=== PATIENT | female | born 1955 | race Caucasian/White ===

== ENCOUNTER 2020-12-23 10:29 | Emergency (ER) | payer MEDICARE, OTHER ==
[2020-12-23] MEDS ORDERED: Sodium Chloride 0.9% 10 ML Syringe FLUSH PRN (11:10)
[2020-12-23] MEDS ORDERED: Sodium Chloride 0.9% 1,000 ML IV ONE (11:14)
[2020-12-23] MEDS ORDERED: Metoclopramide 10 MG/2 ML SDV IVPUSH ONE (11:14)
[2020-12-23] MEDS ORDERED: HYDROmorphone 0.5 MG/0.5 ML Syringe IVPUSH ONE (11:14)
--- NOTE | 2020-12-23 11:33 | EDM.PDOC ---
ED HPI GENERAL MEDICAL PROBLEM - General Chief Complaint: General Stated Complaint: [place] [facility] Time Seen by Provider: 12/23/20 10:56 Source of Information: Reports: Patient, Family History Limitations: Reports: No Limitations, Other (ED vital signs reveal a temp of 97, pulse of 51, respiratory rate of 12, blood pressure 145/67, pulse ox 98% on room air) - History of Present Illness INITIAL COMMENTS - FREE TEXT/NARRATIVE: 65-year-old female presents to the emergency department via [facility] with a syncopal episode that occurred this morning. Per the patient and her , she states she has had slight dull frontal headache for about a week. Over the course of the past 2 days the headache has become more severe, she has developed nausea, no vomiting, sore throat, shortness of breath, nonproductive cough, and extreme fatigue. She denies any vomiting, diarrhea, or abdominal pain associated with this. She states she does have a history of migraine headaches in the past however has not had one for about 20 years. She denies any history of smoking, she is not on any hormone replacement therapy, and she drinks about 2 glasses of wine per week. Per her 2 days ago they were working in the garden for most of the day and when they came in late that afternoon extreme fatigue hit her., She has no significant past medical history and normally she is able to tolerate this. She was seen at the walk-in clinic yesterday and tested for Covid. They state that this was negative and then she was sent home. Per her , this morning when he got home she was still in bed. He heard her wake up and she walked out the kitchen and is going to make a cup of coffee. At that time she stated she felt dizzy, so he was going to help her to a chair. She stated that then she felt the need to go to the bathroom and as he was walking her there he felt she was going to pass out so he sat her down at the kitchen table. He states that she then passed out and was unresponsive for what he thought was about 2 minutes. She eventually did come around but would not open her eyes and was disoriented. He then called the ambulance and they arrived and brought her to the hospital for transport. She states that about a year ago she did have a Holter monitor placed due to palpitations however the results were unremarkable. She has not had Covid this year and she states she did have her Covid vaccine. - Related Data Allergies Allergy/AdvReac Type Severity Reaction Status Date / Time codeine Allergy Nausea Verified 12/23/20 10:37 Home Meds: Home Meds . [No Known Home Meds] 12/23/20 [History] Past Medical History Musculoskeletal History: Reports: Osteoarthritis Psychiatric History: Reports: Anxiety, Depression - Infectious Disease History Infectious Disease History: Reports: Chicken Pox - Past Surgical History GI Surgical History: Reports: Colonoscopy Musculoskeletal Surgical History: Reports: Carpal Tunnel, Hip Replacement Social & Family History - Tobacco Use Tobacco Use Status *Q: Never Tobacco User Second Hand Smoke Exposure: No - Caffeine Use Caffeine Use: Reports: Coffee - Recreational Drug Use Recreational Drug Use: No ED ROS GENERAL - Review of Systems Review Of Systems: See Below ED EXAM, GENERAL - Physical Exam Exam: See Below Exam Limited By: No Limitations General Appearance: Alert, WD/WN, No Apparent Distress Eye Exam: Bilateral Eye: EOMI, PERRL Ears: Normal External Exam, Hearing Grossly Normal Nose: Normal Inspection Throat/Mouth: Normal Inspection, Normal Lips, Normal Oropharynx, Normal Voice, No Airway Compromise Head: Atraumatic Neck: Normal Inspection, Supple, Full Range of Motion, Lymphadenopathy (L), Lymphadenopathy (R) Respiratory/Chest: No Respiratory Distress, Lungs Clear, Normal Breath Sounds, No Accessory Muscle Use, Chest Non-Tender Cardiovascular: Normal Peripheral Pulses, Regular Rate, Rhythm, No Edema, No Murmur Peripheral Pulses: 2+: Radial (L), Radial (R) GI/Abdominal: Normal Bowel Sounds, Soft, Non-Tender, No Distention (Female) Exam: Deferred Rectal (Female) Exam: Deferred Back Exam: Normal Inspection Extremities: Normal Inspection, Normal Range of Motion Neurological: Alert, Oriented, CN II-XII Intact, Normal Cognition, No Motor/Sensory Deficits Psychiatric: Normal Affect, Normal Mood Skin Exam: Warm, Dry, Intact, Normal Color, No Rash Lymphatic: No Adenopathy #1 Interpretation EKG Date: 12/23/20 Time: 11:52 Rhythm: NSR Rate (Beats/Min): 67 [place]: Normal P-Wave: Present QRS: Normal ST-T: Normal QT: Normal Comparison: NA - No Prior EKG EKG Interpretation Comments: Per Dr. Meek interpretation: Sinus at 67; normal axis and intervals; nonspecific ST depression V3 through V5 Course - Vital Signs Text/Narrative:: Patient presents with a 5-day history of what started as a slight dull frontal headache. Over the past 2 days symptoms have progressed into sore throat, extreme fatigue, severe headache, shortness of breath with a dry nonproductive cough, and nausea without vomiting. She states she has felt like she has had an upper respiratory infection over the past several days. She states she does have a sore throat. She denies abdominal pain, diarrhea, or constipation. Patient patient's witnessed a syncopal episode this morning which lasted about 2 minutes and then once the syncope resolved, she would not open her eyes and seemed like she was disoriented. Patient's feels as though she does have some left facial droop however I did a full neuro assessment on the patient and I did not note this. She is sensitive to light, but pupils are reactive. Neuro assessment was essentially unremarkable. She does have a significant amount of fatigue and generalized weakness. Patient also notes increased nausea while I was performing the neuro exam. I have ordered CT of the head, EKG, portable view of the chest, Covid swab as the patient could have had a false negative. She states she also had a swab for strep throat at the clinic yesterday and this was negative. Upon assessment, there were no tonsils appreciated. There is no exudate noted. And there is no erythema noted. I have also ordered labs to include a troponin, magnesium, CBC, CMP, C-reactive protein, lactic acid, ferritin, LDH, TSH. Last Recorded V/S: Last Vital Signs Temp 97 F 12/23/20 10:34 Pulse 51 L 12/23/20 10:34 Resp 12 12/23/20 10:34 BP 145/67 H 12/23/20 10:34 Pulse Ox 98 12/23/20 10:34 - Orders/Labs/Meds Orders: Active Orders 24 hr Category Date Time Status EKG Documentation Completion [RC] STAT Care 12/23/20 11:11 Active Holter Monitor 48 Hours [RC] .PRN Care 12/23/20 13:08 Active Chest 1V Frontal [CR] Stat Exams 12/23/20 11:10 Taken Head wo Cont [CT] Stat Exams 12/23/20 11:14 Taken C-REACTIVE PROTEIN [CHEM] Stat Lab 12/23/20 11:22 Results COMPREHENSIVE METABOLIC PN,CMP [CHEM] Stat Lab 12/23/20 11:22 Results LACTATE DEHYDROGENASE,LDH [CHEM] Stat Lab 12/23/20 11:22 Results MAGNESIUM [CHEM] Stat Lab 12/23/20 11:22 Results TROPONIN I [CHEM] Stat Lab 12/23/20 11:22 Results TSH [CHEM] Stat Lab 12/23/20 11:22 Results Sodium Chloride 0.9% [Saline Flush] Med 12/23/20 11:10 Active 10 ml FLUSH ASDIRECTED PRN Isolation [COMM] Stat Oth 12/23/20 11:11 Ordered Saline Lock Insert [OM.PC] Stat Ot 12/23/20 11:10 Ordered Medication Orders Sodium Chloride (Sodium Chloride 0.9% 10 Ml Syringe) 10 ml FLUSH ASDIRECTED PRN PRN Reason: Keep Vein Open Last Admin: 12/23/20 11:37 Dose: 10 ml Documented by: FRANKLIN Labs: Laboratory Tests 12/23/20 12/23/20 12/23/20 Range/Units 11:22 11:22 11:22 WBC 6.07 (3.98-10.04) K/mm3 RBC 3.93 L (3.98-5.22) M/mm3 Hgb 12.3 (11.2-15.7) gm/dl Hct 37.9 (34.1-44.9) % MCV 96.4 H (79.4-94.8) fl MCH 31.3 (25.6-32.2) pg MCHC 32.5 (32.2-35.5) g/dl RDW Std Deviation 45.1 (36.4-46.3) fL Plt Count 211 (182-369) K/mm3 MPV 9.7 (9.4-12.3) fl Neut % (Auto) 72.4 H (34.0-71.1) % Lymph % (Auto) 18.5 L (19.3-51.7) % Placer % (Auto) 8.4 (4.7-12.5) % Eos % (Auto) 0.2 L (0.7-5.8) Baso % (Auto) 0.3 (0.1-1.2) % Neut # (Auto) 4.40 (1.56-6.13) K/mm3 Lymph # (Auto) 1.12 L (1.18-3.74) K/mm3 Placer # (Auto) 0.51 H (0.24-0.36) K/mm3 Eos # (Auto) 0.01 L (0.04-0.36) K/mm3 Baso # (Auto) 0.02 (0.01-0.08) K/mm3 PT (9.7-12.0) SECONDS INR APTT 24.3 (21.7-31.4) SECONDS D-Dimer, Quantitative (0.19-0.50) mg/L Sodium (136-145) mEq/L Potassium (3.5-5.1) mEq/L Chloride (98-107) mEq/L Carbon Dioxide (21-32) mEq/L Anion Gap (5-15) BUN (7-18) mg/dL Creatinine (0.55-1.02) mg/dL Est Cr Clr Drug Dosing mL/min Estimated GFR (MDRD) (>60) mL/min BUN/Creatinine Ratio (14-18) Glucose (70-99) mg/dL Lactic Acid (0.4-2.0) mmol/L Calcium (8.5-10.1) mg/dL Magnesium (1.8-2.4) mg/dL Ferritin 127 (8-252) ng/ml Total Bilirubin (0.2-1.0) mg/dL AST (15-37) U/L ALT (14-59) U/L Alkaline Phosphatase (46-116) U/L Troponin I (0.00-0.056) ng/mL C-Reactive Protein (<1.0) mg/dL Total Protein (6.4-8.2) g/dl Albumin (3.4-5.0) g/dl Globulin gm/dL Albumin/Globulin Ratio (1-2) TSH 3rd Generation (0.358-3.74) uIU/mL Urine Color (Yellow) Urine Appearance (Clear) Urine pH (5.0-8.0) Ur Specific [place] (1.005-1.030) Urine Protein (Negative) Urine Glucose (UA) (Negative) Urine Ketones (Negative) Urine Occult Blood (Negative) Urine Nitrite (Negative) Urine Bilirubin (Negative) Urine Urobilinogen (0.2-1.0) Ur Leukocyte Esterase (Negative) U Hyaline Cast (Auto) (0-5) /lpf Urine RBC (0-5) /hpf Urine WBC (0-5) /hpf Ur Epithelial Cells (0-5) /hpf Urine Bacteria (FEW) /hpf Urine Mucus (FEW) /hpf SARS-CoV-2 RNA (ADAL) (NEGATIVE) 12/23/20 12/23/20 12/23/20 Range/Units 11:22 11:22 11:22 WBC (3.98-10.04) K/mm3 RBC (3.98-5.22) M/mm3 Hgb (11.2-15.7) gm/dl Hct (34.1-44.9) % MCV (79.4-94.8) fl MCH (25.6-32.2) pg MCHC (32.2-35.5) g/dl RDW Std Deviation (36.4-46.3) fL Plt Count (182-369) K/mm3 MPV (9.4-12.3) fl Neut % (Auto) (34.0-71.1) % Lymph % (Auto) (19.3-51.7) % Placer % (Auto) (4.7-12.5) % Eos % (Auto) (0.7-5.8) Baso % (Auto) (0.1-1.2) % Neut # (Auto) (1.56-6.13) K/mm3 Lymph # (Auto) (1.18-3.74) K/mm3 Placer # (Auto) (0.24-0.36) K/mm3 Eos # (Auto) (0.04-0.36) K/mm3 Baso # (Auto) (0.01-0.08) K/mm3 PT (9.7-12.0) SECONDS INR APTT (21.7-31.4) SECONDS D-Dimer, Quantitative < 0.19 L (0.19-0.50) mg/L Sodium 135 L (136-145) mEq/L Potassium 3.7 (3.5-5.1) mEq/L Chloride 99 (98-107) mEq/L Carbon Dioxide 24 (21-32) mEq/L Anion Gap 15.7 H (5-15) BUN 19 H (7-18) mg/dL Creatinine 0.8 (0.55-1.02) mg/dL Est Cr Clr Drug Dosing 53.97 mL/min Estimated GFR (MDRD) > 60 (>60) mL/min BUN/Creatinine Ratio 23.8 H (14-18) Glucose 127 H (70-99) mg/dL Lactic Acid 1.9 (0.4-2.0) mmol/L Calcium 8.4 L (8.5-10.1) mg/dL Magnesium 1.8 (1.8-2.4) mg/dL Ferritin (8-252) ng/ml Total Bilirubin 0.6 (0.2-1.0) mg/dL AST 37 (15-37) U/L ALT 76 H (14-59) U/L Alkaline Phosphatase 92 (46-116) U/L Troponin I < 0.017 (0.00-0.056) ng/mL C-Reactive Protein 2.0 H* (<1.0) mg/dL Total Protein 6.6 (6.4-8.2) g/dl Albumin 3.3 L (3.4-5.0) g/dl Globulin 3.3 gm/dL Albumin/Globulin Ratio 1.0 (1-2) TSH 3rd Generation 1.345 (0.358-3.74) uIU/mL Urine Color (Yellow) Urine Appearance (Clear) Urine pH (5.0-8.0) Ur Specific [place] (1.005-1.030) Urine Protein (Negative) Urine Glucose (UA) (Negative) Urine Ketones (Negative) Urine Occult Blood (Negative) Urine Nitrite (Negative) Urine Bilirubin (Negative) Urine Urobilinogen (0.2-1.0) Ur Leukocyte Esterase (Negative) U Hyaline Cast (Auto) (0-5) /lpf Urine RBC (0-5) /hpf Urine WBC (0-5) /hpf Ur Epithelial Cells (0-5) /hpf Urine Bacteria (FEW) /hpf Urine Mucus (FEW) /hpf SARS-CoV-2 RNA (ADAL) (NEGATIVE) 12/23/20 12/23/20 12/23/20 Range/Units 11:22 11:24 12:25 WBC (3.98-10.04) K/mm3 RBC (3.98-5.22) M/mm3 Hgb (11.2-15.7) gm/dl Hct (34.1-44.9) % MCV (79.4-94.8) fl MCH (25.6-32.2) pg MCHC (32.2-35.5) g/dl RDW Std Deviation (36.4-46.3) fL Plt Count (182-369) K/mm3 MPV (9.4-12.3) fl Neut % (Auto) (34.0-71.1) % Lymph % (Auto) (19.3-51.7) % [place] % (Auto) (4.7-12.5) % Eos % (Auto) (0.7-5.8) Baso % (Auto) (0.1-1.2) % Neut # (Auto) (1.56-6.13) K/mm3 Lymph # (Auto) (1.18-3.74) K/mm3 [place] # (Auto) (0.24-0.36) K/mm3 Eos # (Auto) (0.04-0.36) K/mm3 Baso # (Auto) (0.01-0.08) K/mm3 PT 10.8 (9.7-12.0) SECONDS INR 1.01 APTT (21.7-31.4) SECONDS D-Dimer, Quantitative (0.19-0.50) mg/L Sodium (136-145) mEq/L Potassium (3.5-5.1) mEq/L Chloride (98-107) mEq/L Carbon Dioxide (21-32) mEq/L Anion Gap (5-15) BUN (7-18) mg/dL Creatinine (0.55-1.02) mg/dL Est Cr Clr Drug Dosing mL/min Estimated GFR (MDRD) (>60) mL/min BUN/Creatinine Ratio (14-18) Glucose (70-99) mg/dL Lactic Acid (0.4-2.0) mmol/L Calcium (8.5-10.1) mg/dL Magnesium (1.8-2.4) mg/dL Ferritin (8-252) ng/ml Total Bilirubin (0.2-1.0) mg/dL AST (15-37) U/L ALT (14-59) U/L Alkaline Phosphatase (46-116) U/L Troponin I (0.00-0.056) ng/mL C-Reactive Protein (<1.0) mg/dL Total Protein (6.4-8.2) g/dl Albumin (3.4-5.0) g/dl Globulin gm/dL Albumin/Globulin Ratio (1-2) TSH 3rd Generation (0.358-3.74) uIU/mL Urine Color Yellow (Yellow) Urine Appearance Clear (Clear) Urine pH 6.5 (5.0-8.0) Ur Specific [place] 1.025 (1.005-1.030) Urine Protein 2+ H (Negative) Urine Glucose (UA) Negative (Negative) Urine Ketones 4+ H (Negative) Urine Occult Blood Trace-intact H (Negative) Urine Nitrite Negative (Negative) Urine Bilirubin Negative (Negative) Urine Urobilinogen 0.2 (0.2-1.0) Ur Leukocyte Esterase Negative (Negative) U Hyaline Cast (Auto) 0-5 (0-5) /lpf Urine RBC 0-5 (0-5) /hpf Urine WBC 0-5 (0-5) /hpf Ur Epithelial Cells 0-5 (0-5) /hpf Urine Bacteria Few (FEW) /hpf Urine Mucus Moderate H (FEW) /hpf SARS-CoV-2 RNA (ADAL) Negative (NEGATIVE) Meds: Medications Generic Name Dose Route Start Last Admin Trade Name Woody PRN Reason Stop Dose Admin Sodium Chloride 10 ml 12/23/20 11:10 12/23/20 11:37 Sodium Chloride 0.9% 10 Ml Syringe FLUSH 10 ml ASDIRECTED PRN Administration Keep Vein Open Discontinued Medications Generic Name Dose Route Start Last Admin Trade Name Woody PRN Reason Stop Dose Admin Hydromorphone HCl 0.5 mg 12/23/20 11:14 12/23/20 11:36 Hydromorphone 0.5 Mg/0.5 Ml Syringe IVPUSH 12/23/20 11:15 Not Given ONETIME ONE Sodium Chloride 1,000 mls @ 999 mls/hr 12/23/20 11:14 12/23/20 11:31 Normal Saline IV 12/23/20 12:14 999 mls/hr ONETIME ONE Administration Metoclopramide HCl 5 mg 12/23/20 11:14 12/23/20 11:31 Metoclopramide 10 Mg/2 Ml Sdv IVPUSH 12/23/20 11:15 5 mg ONETIME ONE Administration - Radiology Interpretation Free Text/Narrative:: Nothing acute is appreciated on portable view of the chest. - Re-Assessments/Exams Free Text/Narrative Re-Assessment/Exam: 12/23/20 12:47 Hematology reveals a WBC of 6.07, hemoglobin 12.3, hematocrit 37.9, platelet count 211, coagulation is unremarkable, D-dimer less than 0.19, chemistry reveals a sodium of 135, potassium 3.7, chloride 99, carbon dioxide 24, anion gap 15.7, BUN 19, creatinine 0.8, glucose 127, lactic acid 1.9, calcium 8.4, magnesium 1.8, AST 37, ALT 76, troponin less than 0.017, C-reactive protein 2.0, TSH 1.345, Urinalysis shows a 2+ protein, 4+ ketones, trace of occult blood, nitrate negative, leukocyte Estrace negative Covid swab is negative. 12/23/20 13:11 LDH is 173. [facility] radiologist impression: No evidence of acute intracranial abnormality. No acute hemorrhage. No evidence of acute infarct or mass. Patient states that she is feeling much better after IV fluids, Reglan and Dilaudid. She states her headache is gone. She says her nausea is gone. She is no longer sensitive to light. I discussed the lab findings with the patient and her and they are agreeable to go home. I am going however order a Holter monitor on her. She will need to follow-up with her primary care provider, , in the clinic the middle of next week. I will have our kitchen steward/stewardess schedule this appointment as the patient did try to get in to see him yesterday and they said he was booked out until January. Nursing staff is going to ambulate the patient before going home Departure - Departure Time of Disposition: 13:18 Disposition: Home, Self-Care 01 Condition: Fair Clinical Impression: Headache Qualifiers: Headache type: unspecified Headache chronicity pattern: acute headache Intractability: intractable Qualified Code(s): R51.9 - Headache, unspecified Fatigue Qualifiers: Fatigue type: unspecified Qualified Code(s): R53.83 - Other fatigue Episode of syncope Qualifiers: Syncope type: unspecified Qualified Code(s): R55 - Syncope and collapse - Discharge Information Instructions: Syncope, [id number] Referrals: Farhan Laura MD [Ordering Only Provider] - Forms: ED Department Discharge Additional Instructions: You were seen in the emergency department today after having a syncopal episode at home this morning. He also stated you have had a headache for about a week, increased fatigue, cough, shortness of breath, sinus congestion, and a sore throat. CT scan of the head was completed and this was unremarkable. Labs were completed which included markers for any cardiac issues, as well as inflammatory markers. Your lab work was all essentially unremarkable. EKG was unremarkable as well as chest x-ray. This could very likely all be due to viral illness. You state you felt better after receiving 2 L of IV fluid and pain and nausea medication. Recommend that you go home and rest and drink plenty of fluids. A Holter monitor was placed to monitor your heart for the next 48 hours. This information will be sent to Dr. Laura. You have a follow-up appointment scheduled for December 30 at 1:15 in the afternoon with him. He should have the results of your Holter monitor at that time as well. Should your condition worsen or change, do not hesitate returning to the emergency department. Sepsis Event Note (ED) - Evaluation Sepsis Screening Result: No Definite Risk - Focused Exam Vital Signs: Vital Signs Temp Pulse Resp BP Pulse Ox 12/23/20 10:34 97 F 51 L 12 145/67 H 98 - My Orders Last 24 Hours: My Active Orders 12/23/20 11:10 Chest 1V Frontal [CR] Stat Sodium Chloride 0.9% [Saline Flush] 10 ml FLUSH ASDIRECTED PRN Saline Lock Insert [OM.PC] Stat 12/23/20 11:11 EKG Documentation Completion [RC] STAT Isolation [COMM] Stat 12/23/20 11:14 Head wo Cont [CT] Stat 12/23/20 11:22 C-REACTIVE PROTEIN [CHEM] Stat COMPREHENSIVE METABOLIC PN,CMP [CHEM] Stat LACTATE DEHYDROGENASE,LDH [CHEM] Stat MAGNESIUM [CHEM] Stat TROPONIN I [CHEM] Stat TSH [CHEM] Stat 12/23/20 13:08 Holter Monitor 48 Hours [RC] .PRN - Assessment/Plan Last 24 Hours: My Active Orders 12/23/20 11:10 Chest 1V Frontal [CR] Stat Sodium Chloride 0.9% [Saline Flush] 10 ml FLUSH ASDIRECTED PRN Saline Lock Insert [OM.PC] Stat 12/23/20 11:11 EKG Documentation Completion [RC] STAT Isolation [COMM] Stat 12/23/20 11:14 Head wo Cont [CT] Stat 12/23/20 11:22 C-REACTIVE PROTEIN [CHEM] Stat COMPREHENSIVE METABOLIC PN,CMP [CHEM] Stat LACTATE DEHYDROGENASE,LDH [CHEM] Stat MAGNESIUM [CHEM] Stat TROPONIN I [CHEM] Stat TSH [CHEM] Stat 12/23/20 13:08 Holter Monitor 48 Hours [RC] .PRN
--- NOTE | 2020-12-24 06:48 | CT ---
Head CT Technique: Multiple axial sections through the brain were obtained. Intravenous contrast was not utilized. Reconstructed coronal and sagittal images were obtained. Comparison: No prior intracranial imaging is available. Findings: Ventricles along with basal cisterns and sulci over the convexities are within normal limits for the patient's age. No abnormal parenchymal densities are seen. No evidence of intracranial hemorrhage is seen. No midline shift or mass-effect is appreciated. Visualized mastoid sinuses and paranasal sinuses show nothing acute. No acute calvarial abnormality is appreciated. Impression: 1. Nothing acute is appreciated on noncontrast head CT study. Diagnostic code #1 I agree with preliminary report from [facility] finalized on 12/23/20, 1:14 PM CDT, code 1
--- NOTE | 2020-12-24 06:48 | CR ---
Chest: Portable view of the chest was obtained. Comparison: No prior chest imaging is available. Heart size and mediastinum are within normal limits. Lungs are clear with no acute parenchymal change. Bony structure shows nothing acute. Impression: 1. Nothing acute is appreciated on frontal chest x-ray. Diagnostic code #1
== END 2020-12-23 13:40 | disposition home or self-care (01) ==
LOC: JD.ED 10:29
DX: R55 Syncope and collapse (principal); R53.83 Other fatigue; R51.9 Headache, unspecified; Z88.5 Allergy status to narcotic agent; Z20.822 Contact with and (suspected) exposure to COVID-19
CPT/HCPCS: 36415; 70450; 71045; 80053; 81001; 82728; 83605; 83615; 83735; 84443; 84484; 85025; 85379; 85610; 85730; 86140; 93005; 93225; 93226; 96374; 99285; J2765; J7030; U0002; 93010; 99284

== ENCOUNTER 2020-12-24 08:34 | Emergency (ER) | payer OTHER ==
--- NOTE | 2020-12-24 08:53 | EDM.PDOC ---
ED HPI GENERAL MEDICAL PROBLEM - General Chief Complaint: Syncope Stated Complaint: SYNCOPE Time Seen by Provider: 12/24/20 08:53 - History of Present Illness INITIAL COMMENTS - FREE TEXT/NARRATIVE: 65-year-old female returns to the emergency room with some interim mitten lightheadedness. Patient had a thorough evaluation here yesterday after having a syncopal event. It sounds very much that the patient had a significant viral illness and has not quite got over yet or has a post viral syndrome. The patient's had a history of vertigo in the past and her dizziness is getting worse she is also noticed some ringing in the ears since this illness and to this time. This is intermittent. Does seem to correlate a little bit with her dizziness. She cannot identify as to the trigger of the dizziness however turning her head to one side or the other does not seem to make it worse or trigger it. Patient has a left frontal headache that is fairly mild and fairly constant with this illness. The patient is wearing a 48-hour Holter at this time. The patient has a persistent cough dry nonproductive it is unclear to me if this triggers her lightheadedness. - Related Data Allergies Allergy/AdvReac Type Severity Reaction Status Date / Time codeine Allergy Nausea Verified 12/24/20 08:51 Home Meds: Home Meds Benzonatate 200 mg PO TID #12 capsule 12/24/20 [Rx] Meclizine [Antivert] 12.5 mg PO TID #15 tab 12/24/20 [Rx] Past Medical History Musculoskeletal History: Reports: Osteoarthritis Psychiatric History: Reports: Anxiety, Depression - Infectious Disease History Infectious Disease History: Reports: Chicken Pox - Past Surgical History GI Surgical History: Reports: Colonoscopy Musculoskeletal Surgical History: Reports: Carpal Tunnel, Hip Replacement Social & Family History - Caffeine Use Caffeine Use: Reports: Coffee ED ROS GENERAL - Review of Systems Review Of Systems: See Below Constitutional: Reports: No Symptoms HEENT: Reports: Vertigo, Other (During her recent illness she has had a sore throat this seems to be much better) Respiratory: Reports: No Symptoms, Cough. Denies: Sputum Cardiovascular: Reports: Blood Pressure Problem Endocrine: Reports: No Symptoms GI/Abdominal: Reports: No Symptoms : Reports: No Symptoms Musculoskeletal: Reports: No Symptoms Skin: Reports: No Symptoms Neurological: Reports: Headache, Syncope, Other (Dizziness) Psychiatric: Reports: No Symptoms ED EXAM, GENERAL - Physical Exam Exam: See Below Exam Limited By: No Limitations General Appearance: Alert, No Apparent Distress, Other (Her blood pressure is elevated it usually runs in the normal range at home) Eye Exam: Bilateral Eye: EOMI, Normal Inspection, PERRL Ears: Normal External Exam, Normal Canal, Hearing Grossly Normal, Normal TMs Nose: Normal Inspection, Normal Mucosa, No Blood Throat/Mouth: Normal Inspection, Normal Lips, Normal Teeth, Normal Gums, Normal Oropharynx, Normal Voice, No Airway Compromise Head: Atraumatic, Normocephalic Neck: Normal Inspection, Supple, Non-Tender. No: Lymphadenopathy (L), Lymphadenopathy (R) Respiratory/Chest: No Respiratory Distress, Lungs Clear, Normal Breath Sounds Cardiovascular: Regular Rate, Rhythm, No Edema, No Murmur GI/Abdominal: Normal Bowel Sounds, Soft, Non-Tender Back Exam: Normal Inspection. No: CVA Tenderness (L), CVA Tenderness (R) Neurological: Other (Provoking maneuvers for vertigo are nonyielding at this time) Psychiatric: Normal Affect Skin Exam: Warm, Dry, Intact Course - Vital Signs Last Recorded V/S: Last Vital Signs Temp 36.4 C 12/24/20 08:46 Pulse 55 L 12/24/20 08:46 Resp 12 12/24/20 08:46 BP 195/94 H 12/24/20 08:46 Pulse Ox 99 12/24/20 08:46 - Orders/Labs/Meds Meds: Medications Discontinued Medications Generic Name Dose Route Start Last Admin Trade Name Freq PRN Reason Stop Dose Admin Benzonatate 200 mg 12/24/20 10:19 12/24/20 10:30 Benzonatate 100 Mg Cap PO 12/24/20 10:20 200 mg ONETIME ONE Administration Meclizine HCl 12.5 mg 12/24/20 09:31 12/24/20 09:43 Meclizine 12.5 Mg Tab PO 12/24/20 09:32 12.5 mg ONETIME ONE Administration - Re-Assessments/Exams Free Text/Narrative Re-Assessment/Exam: 12/24/20 11:27 Patient had a thorough exam done yesterday this will not be repeated. Had a long discussion with the patient and I am concerned that she is having ringing in her ears and she is having some intermittent dizziness. Her blood pressure has been elevated here which is unusual for her she will start keeping an eye on it at home once in the morning once in the evening and keeping a log of this she has follow-up with her physician this coming . We will not address the blood pressure at this time I have recommended she get a hearing evaluation especially with the ringing in her ears she has had a history of vertigo in the past and I am wondering if this is starting to come back albeit I cannot provoke it here in the emergency room. The patient was given 12.5 mg of meclizine is actually feeling it much better at this time. We will have her use the meclizine for the next 24 hours every 8 hours and then as needed. Her cough seems to be doing better with Tessalon and will give her some Tessalon as well. Departure - Departure Time of Disposition: 11:28 Disposition: Home, Self-Care 01 Clinical Impression: Cough, Dizziness Headache Qualifiers: Headache type: unspecified Headache chronicity pattern: acute headache Intractability: intractable Qualified Code(s): R51.9 - Headache, unspecified Episode of syncope Qualifiers: Syncope type: unspecified Qualified Code(s): R55 - Syncope and collapse - Discharge Information Referrals: Joe Blanco MD [Primary Care Provider] - Forms: ED Department Discharge Additional Instructions: Return to the emergency room with any questions problems or worsening symptoms. Use the Tessalon Perles, or benzonatate as needed for cough Use the meclizine 1/2 to 1 tablet every 8 hours for the next 2 days and then as needed. Check your blood pressure every morning and every evening keep a log of this and discuss this with your physician on . Follow-up with your physician on as scheduled Sepsis Event Note (ED) - Evaluation Sepsis Screening Result: No Definite Risk - Focused Exam Vital Signs: Vital Signs Temp Pulse Resp BP Pulse Ox 12/24/20 08:46 36.4 C 55 L 12 195/94 H 99
[2020-12-24] MEDS ORDERED: Meclizine 12.5 MG Tab PO ONE (09:31)
[2020-12-24] MEDS ORDERED: Benzonatate 100 MG Cap PO ONE (10:19)
== END 2020-12-24 11:49 | disposition home or self-care (01) ==
LOC: JD.ED 08:34
DX: R55 Syncope and collapse (principal); R42 Dizziness and giddiness; R51.9 Headache, unspecified; R05 Cough; Z88.5 Allergy status to narcotic agent
CPT/HCPCS: 99283; A9270; 99284